=== PATIENT | female | born 2000 | race Two or more races ===

== ENCOUNTER 2018-12-14 22:14 | Emergency (ER) | payer MEDICAID, OTHER ==
[~2018-12-14] VITALS: Ht 149.9 cm; Wt 63.5 kg
[2018-12-14 23:02] LABS: Urine Bacteria FEW /hpf (None Seen); Urine Blood Negative /uL (Negative); Urine Specific Gravity 1.019 (1.001-1.035); Urine WBC 4 /hpf (0 - 5)
[2018-12-15 04:10] VITALS: BP 123/64
== END 2018-12-15 04:15 | disposition home or self-care (01) ==
LOC: ER 22:15
DX: O21.0 Mild hyperemesis gravidarum (principal); Z3A.01 Less than 8 weeks gestation of pregnancy
CPT/HCPCS: 36415; 76801; 81001; 84702